=== PATIENT | male | born 1985 | race Two or more races ===

== ENCOUNTER 2025-11-02 14:34 | Outpatient (OUT) | payer MEDICARE, SELFPAY ==
--- OUTSIDE RECORDS SUMMARY | 2025-10-30 11:22 | XMS_ITS | Encounter Summary ---
Author Organization [facility] Address [address] [place] [address] Care Team Providers Care Cage Operator Name Role Phone Marcie Donaldson MD Primary Care Provider Reason for Visit * ReasonCommentsOtalgia Encounter Details DateTypeDepartmentCare Team (Latest Contact Info)Urewbmizrpt82/29/2025 11:22 AM EST - 10/30/2025 1:14 PM [facility] Emergency Department [address] [place] [phone] Mike Noble, [address] [place] [address] Discharge Disposition: Home Social History Tobacco UseTypesPacks/DayYears UsedDateSmoking Tobacco: NeverSmokeless Tobacco: NeverAlcohol UseStandard Drinks/WeekCommentsNo0 (1 standard drink = 0.6 oz pure alcohol)Sex and Gender InformationValueDate RecordedSex Assigned at BirthNot on fileLegal SwmShwj0005/16/2015 12:02 PM EDTGender IdentityNot on fileSexual OrientationNot on filedocumented as of this encounter Last Filed Vital Signs Vital SignReadingTime TakenCommentsBlood Fwrmzobz644/8711 11:25 AM EST Rstfv05723/29/2025 11:25 AM RPHNtjfwnegths29.7 ??C (98 ??F)10/30/2025 11:25 AM ESTRespiratory Vobc001112/30/2024 1:11 PM ESTOxygen Mtafbphbgp75%10/30/2025 11:25 AM ESTInhaled Oxygen Concentration--Jdmfgk72.7 kg (136 lb)10/30/2025 11:25 AM MLIRpaaio355.2 cm (5' 7 )10/30/2025 11:25 AM ESTBody Mass Index21. 11:25 AM ESTdocumented in this encounter Discharge Instructions * Discharge Instructions* Namrata Bowden CNP - 10/30/2025 12:16 PM EST Please make a follow-up appointment with your primary care provider. Please take all medications asprescribed. Do not hesitate to return to the emergency department for any new or worsening symptoms. * Attachments The following attachments cannot be sent through Care Everywhere. * Otitis Media (Yi) * Ears: Keeping Dry Instruction (Yi) * Otitis Externa (Yi) documented in this encounter Medications at Time of Discharge MedicationSigDispense QuantityRefillsLast FilledStart DateEnd Date amoxicillin-clavulanate (AUGMENTIN) 875-125 mg per tablet Take 1 (one) tablet by mouth 2 (two) times a day for 7 days . 14 tablet aspirin 81 MG EC tablet Take 81 mg by mouth daily. atorvastatin (LIPITOR) 40 MG tablet Take 40 mg by mouth every night at bedtime. carBAMazepine (TEGRETOL) 200 mg tablet Take 200 mg by mouth 2 (two) times a day. carvedilol (COREG) 3.125 MG tablet Take 3.125 mg by mouth 2 (two) times a day. ciprofloxacin-dexAMETHasone (CIPRODEX) otic suspension Administer 4 (four) drops into the left ear 2 (two) times a day for 7 days . 7.5 mL HYDROcodone-acetaminophen (NORCO) 5-325 mg per tablet Indications:Dental infectionTake 1 (one) tablet by mouth every 6 (six) hours as needed for pain 2 days supply . 5 tablet 10/07/2025 lisinopril (PRINIVIL,ZESTRIL) 5 MG tablet Take 5 mg by mouth daily. permethrin (LICE TREATMENT, PERMETHRIN,) 1 % liquid . She will after shampooing her hair, apply liquid to hair and scalp. Leave on for 10 minutes. Rinse. May repeat in 1 week if signs of lice remain. 118 mL 01/10/2018documented as of this encounter ED Notes * Namrata Bowden, DORITA - 10/30/2025 1:14 PM EST [facility] ED MARL[facility] Note: NAME: Adam Jewell 40 y.o. CSN: [id number] PCP: Marcie Donaldson MD History: Chief Complaint: Otalgia HPI: The history was obtained from the patient. Adam is a 40 y.o. male who presents with a chief complaint of Otalgia. Patient has a history of CAD, HTN, HLD, CVA. Presents to the emergency department today with complaints of left ear pain. He states that he has had ongoing pain to the left ear and was previously placed on ofloxacin drops. He states that when he went to see his provider they were unable to see inside his ear but gave the antibiotic drops as precaution. He states that the area seems to be worsening. He states he feels like the ear is closingup. 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 He denies any hearing difficulties. Denies any fever, nasal congestion, sore throat, dizziness, vomiting, diarrhea, urinary symptoms. He denies any drainage from the area. Denies any foreign body. PMHx: Past Medical History: Diagnosis Date Behavior problem, adult Coronary artery disease Hyperlipidemia Hypertension Myocardial infarction (HCC) Stroke (HCC) SVT (supraventricular tachycardia) PMSx: Past Surgical History: Procedure Laterality Date CARDIAC CATHETERIZATION CARDIAC CATHETERIZATION N/A 11/30/2016 Procedure: Left Heart Cath Possible PTCA/Stent; Surgeon: Sam Butler MD; Location: [facility]; Service: plastic surgery on L eft ear FAM. Hx: History reviewed. No pertinent family history. SOC. Hx: Social History [1] MEDs: Previous Medications Medication Sig aspirin 81 MG EC tablet Take 81 mg by mouth daily. atorvastatin (LIPITOR) 40 MG tablet Take 40 mg by mouth every night at bedtime. carBAMazepine (TEGRETOL) 200 mg tablet Take 200 mg by mouth 2 (two) times a day. carvedilol (COREG) 3.125 MG tablet Take 3.125 mg by mouth 2 (two) times a day. HYDROcodone-acetaminophen (NORCO) 5-325 mg per tablet Take 1 (one) tablet by mouth every 6 (six) hours as needed for pain 2 days supply . lisinopril (PRINIVIL,ZESTRIL) 5 MG tablet Take 5 mg by mouth daily. metoclopramide (REGLAN) 5 MG tablet Take 1 (one) tablet (5 mg total) by mouth 2 (two) times a day as needed . pantoprazole (PROTONIX) 20 MG tablet Take 1 (one) tablet (20 mg total) by mouth daily . permethrin (LICE TREATMENT, PERMETHRIN,) 1 % liquid . She will after shampooing her hair, apply liquid to hair and scalp. Leave on for 10 minutes. Rinse. May repeat in 1 week if signs of lice remain. ALL: Allergies[2] ROS: Positives and pertinent negatives as per HPI. All other systems were reviewed and are negative. Physical Exam: Patient Vitals for the past 24 hrs: BP Temp Temp src Pulse Resp SpO2 Height Weight 10/30/25 1311 -- -- -- -- 18 -- -- -- 10/30/25 1125 130/87 98 ??F (36.7 ??C) Oral (!) 106 16 99 % 5' 7 61.7 kg (136 lb) Physical Exam Vitals and nursing note reviewed. Constitutional: General: He is not in acute distress. Appearance: Normal appearance. He is well-developed. He is not ill-appearing or toxic-appearing. HENT: Head: Normocephalic and atraumatic. Right Ear: Tympanic membrane, ear canal and external ear normal. Left Ear: Swelling and tenderness present. A middle ear effusion is present. There is no impacted cerumen. Tympanic membrane is erythematous. Tympanic membrane is not perforated. Ears: Comments: Swelling to the canal, difficulty visualizing the TM but what was visualized was intact. No drainage noted. Nose: Nose normal. Eyes: General: No scleral icterus. Conjunctiva/sclera: Conjunctivae normal. Cardiovascular: Rate and Rhythm: Normal rate and regular rhythm. Heart sounds: Normal heart sounds. No murmur heard. Musculoskeletal: Cervical back: Neck supple. Right lower leg: No swelling. No edema. Left lower leg: No swelling. No edema. Pulmonary: Effort: Pulmonary effort is normal. No respiratory distress. Breath sounds: Normal breath sounds and air entry. Skin: General: Skin is warm and dry. Findings: No rash. Neurological: General: No focal deficit present. Mental Status: He is alert and oriented to person, place, and time. Psychiatric: Behavior: Behavior normal. Behavior is cooperative. Laboratory & Radiological Imaging (if done): Labs Reviewed - No data to display No orders to display MDM: Differential : Otitis media, otitis externa, cellulitis Medical Decision Making Problems Addressed: Acute otitis externa of left ear, unspecified type: acute illness or injury Left otitis media, unspecified otitis media type: acute illness or injury Patient was placed on Ciprodex as well as Augmentin for concern for left ear pain. Findings consistent with otitis externa/otitis media. He does have an appointment with ENT in the next week. We discussed return precautions. All questions answered patient is discharged in stable condition. Clinical Impression: 1. Acute otitis externa of left ear, unspecified type 2. Left otitis media, unspecified otitis media type Disposition: Patient is being discharge home. New Prescriptions ciprofloxacin-dexAMETHasone (CIPRODEX) otic suspension Administer 4 (four) drops into the left ear 2 (two) times a day for 7 days . amoxicillin-clavulanate (AUGMENTIN) 875-125 mg per tablet Take 1 (one) tablet by mouth 2 (two) times a day for 7 days . Namrata Bowden CNP ED Advanced Practice Provider [facility] Emergency Department (Please note that portions of this note have been completed with a voice recognition software. Efforts were made to correct any errors, but occasionally words are mis-transcribed.) [1] Social History Socioeconomic History Marital status: Single Tobacco Use Smoking status: Never Smokeless tobacco: Never Substance and Sexual Activity Alcohol use: No Drug use: Yes Types: Marijuana [2] Allergies Allergen Reactions Toradol [Ketorolac] Shortness Of Breath Codeine Nitroglycerin Swelling Namrata Bowden CNP 10/30/25 1402 * Citlaly Ronquillo RN - 10/30/2025 1:13 PM EST PT DISCHARGED AT THIS TIME. COPY OF DISCHARGE PAPERWORK PROVIDED AND REVIEWED WITH PT. ALL MEDICATIONS, FOLLOW UP, AND DISCHARGE INSTRUCTIONS REVIEWED WITH PT. PT VERBALIZED UNDERSTANDING. PT A&OX4. BREATHS EVEN AND UNLABORED. * Connie Grullon RN - 10/30/2025 11:27 AM EST Bed: 16 Expected date: Expected time: Means of arrival: Comments: Next * Sonya Nunn RN - 10/30/2025 11:23 AM EST Pt to ED via EMS with c/o ear pain for the last week. Pt reports that he saw his primary care provider earlier this week and was prescribed ofloaxcin. Pt reports pain has gotten worse and cannot getthe drops in my ears anymore. Pt states he has an appointment with ENT provider on 11/02 documented in this encounter Miscellaneous Notes * ED Attestation Note - Mike Noble DO - 10/30/2025 1:14 PM EST ED Attestation: I did not see this patient. However, I was personally available for consult in the ED for this patient, if the Advanced Practice Provider (MARLON) needed any assistance. The MARLON evaluated the patient independently for a complaint of Otalgia, and completed their own examination, documentation, and discharge. documented in this encounter Plan of Treatment Not on file documented as of this encounter Visit Diagnoses Diagnosis Acute otitis externa of left ear, unspecified type- Primary Left otitis media, unspecified otitis media type documented in this encounter Administered Medications Medication OrderMAR ActionAction DateDoseRateSite amoxicillin-clavulanate (AUGMENTIN) 875-125 mg per tablet 1 tablet 1 tablet, Oral, Once, On 10/30/25 at 1220, For 1 dose, Indication: Acute Otitis Media Given10/30/2025 1:11 PM EST1 tablet HYDROcodone-acetaminophen (NORCO) 5-325 mg per tablet 1 tablet 1 tablet, Oral, Once, On 10/30/25 at 1220, For 1 dose Given10/30/2025 1:11 PM EST1 tabletdocumented in this encounter Active and Recently Administered Medications Times are shown in EST.Medication Order//[id number]/ amoxicillin-clavulanate (AUGMENTIN) 875-125 mg per tablet 1 tablet (COMPLETED) 1 tablet, Oral, Once, On 10/30/25 at 1220, For 1 dose, Indication: Acute Otitis Media * 1311 (Given - Provider: Citlaly Ronquillo RN) HYDROcodone-acetaminophen (NORCO) 5-325 mg per tablet 1 tablet (COMPLETED) 1 tablet, Oral, Once, On 10/30/25 at 1220, For 1 dose * 1311 (Given - Provider: Citlaly Ronquillo RN) documented in this encounter Care Teams Team MemberRelationshipSpecialtyStart DateEnd Date Marcie Donaldson MD [address] [place] [id number] PCP - GeneralFamily Medicine12/11/24documented as of this encounter
--- OUTSIDE RECORDS SUMMARY | 2025-11-02 13:40 | XMS_ITS | Encounter Summary ---
Author Organization [facility] Address [address] [place] [address] Care Team Providers Care Warehouse Manager Name Role Phone Bacilio Ballesteros Primary Care Provider [phone] Reason for Visit * ReasonCommentsEar ProblemChronic LT ME infection/congenital ear lobe absence Encounter Details DateTypeDepartmentCare Team (Latest Contact Info)Madwfidests00/02/2025 1:40 PM ESTOffice Visit [facility] [address] [facility] [address] [place] [phone] Patience Damon MD [address] [facility] [address] [place] [address] 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); Impacted cerumen of left ear; Otalgia, left Social History Tobacco UseTypesPacks/DayYears UsedDateSmoking Tobacco: Every DayCigarettes Tobacco Cessation:Ready to Q uit: Not Asked; Counseling Given: Not Answered Comments:vape Alcohol UseStandard Drinks/WeekCommentsYes0 (1 standard drink = 0.6 oz pure alcohol)Sex and Gender InformationValueDate RecordedSex Assigned at BirthNot on fileLegal FfnUgjf1701/08/2024 11:47 AM ESTGender IdentityNot on fileSexual OrientationNot on filedocumented as of this encounter Last Filed Vital Signs Vital SignReadingTime TakenCommentsBlood Zijmgzzi92/7111/02/2025 1:38 PM EST Xxqpc579311/02/2025 1:38 PM ESTTemperature--Respiratory Rate--Oxygen Saturation-- Inhaled Oxygen Concentration--Ssxvgr65 kg (141 lb)11/02/2025 1:38 PM ESTHeight 170.2 cm (5' 7 )11/02/2025 1:38 PM ESTBody Mass Index22.0811/02/2025 1:38 PM EST documented in this encounter Progress Notes * Patience Damon MD - 11/02/2025 1:40 PM EST Subjective Patient ID: Adam Jewell is a 40 y.o. 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 Has been unable to close his mouth and swallow a few days. Has a congenital atresia. Tx with floxin, ciprodex and augmentin. H/O reconstructive surgery at [place] as a young child. Review of Systems All other systems reviewed and are negative. 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 Neck pain 11/27/2023 Periodontitis 04/14/2024 Generalized anxiety disorder with panic attacks 04/14/2024 Right sided weakness 11/27/2023 Schizophrenia (HCC) 11/27/2023 Breakthrough seizure (HCC) 11/27/2023 Sinus tachycardia by electrocardiogram 11/27/2023 Swallowed foreign body 11/27/2023 Tooth fractures 04/14/2024 Trauma 11/27/2023 High risk social situation 04/14/2024 GERD (gastroesophageal reflux disease) 04/14/2024 Fall 11/27/2023 Establishing care with new doctor, encounter for 04/14/2024 Dyslipidemia 11/27/2023 Depression 11/27/2023 Dental abscess 04/14/2024 Current smoker 04/14/2024 Facial paralysis on left side 04/14/2024 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 Closed head injury 11/27/2023 Chronic left middle ear infection 04/14/2024 Chest pain 11/29/2016 Cerumen impaction 10/29/2025 Family history of carcinoma in situ of anal canal 10/29/2025 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) 10/29/2025 Low TSH level 10/29/2025 LUQ pain 10/29/2025 Skin infection 10/29/2025 SOB (shortness of breath) 10/29/2025 Tooth pain 10/29/2025 Resolved Ambulatory Problems Diagnosis Date Noted No Resolved Ambulatory Problems Past Medical History: Diagnosis Date Ear problems Surgical History[2] Allergies[3] Medications Ordered Prior to Encounter[4] Objective Last Recorded Vitals Vitals: 11/02/25 1338 BP: 96/71 Pulse: 84 ENT Physical Exam Constitutional Appearance: patient appears well-developed and well-nourished, Head and Face Appearance: head appears normal and face appears atraumatic; Ear Ear Canals: right ear canal normal; Tympanic Membranes: right tympanic membrane normal; Ear comments: LT - Pt jumped in extreme pain at the lightest touch of his auricle, EAC and left cheek. No otorrhea, swelling or erythema evident. Dense cerumen impaction in medial EAC. Unable to debride due to pt's inability to be still when touched. Nose External Nose: nares patent bilaterally; external nose normal; Internal Nose: nasal mucosa normal; Oral Cavity/Oropharynx Lips: normal; Teeth: normal; Gums: gingiva normal; Tongue: normal; Oral mucosa: normal; Hard palate: normal; Neck Neck: neck normal; neck palpation normal; Thyroid: thyroid normal; Respiratory Inspection: breathing unlabored; normal breathing rate; Auscultation: breath sounds are clear; Cardiovascular Inspection: extremities are warm and well perfused; no peripheral edema present; Auscultation: regular rate and rhythm; Assessment/Plan Diagnoses and all orders for this visit: Congenital atresia of external auditory canal Impacted cerumen of left ear Otalgia, left Pt expresses extreme tenderness in the absence of any sign of inflammation. I will check labs to assess for infection and chronic inflammation. I feel it is best at this point, given the abnormal anatomy of his ear for the ear to be managed by an associate veterinarian. As his reconstructive surgery was performed at , I will have pt see Dr Mao. [1] Family History Family history unknown: Yes [2] Past Surgical History: Procedure Laterality Date CT ANGIO HEAD 04/23/2023 CT ANGIO HEAD 04/23/2023 CT ANGIOGRAM NECK 04/23/2023 CT ANGIOGRAM NECK 04/23/2023 OTHER SURGICAL HISTORY at LT ear reconstruction [3] Allergies Allergen Reactions Codeine Shortness of breath Other Reaction(s): Unknown Ketorolac Tromethamine Other Reaction(s): Swelling Nitroglycerin Swelling and Unknown Other Reaction(s): Shortness of breath [4] Current Outpatient Medications on File Prior to Visit Medication Sig Dispense Refill amitriptyline (Elavil) 50 MG tablet Take 50 mg by mouth at bedtime amoxicillin-clavulanate (Augmentin) 875-125 MG tablet Take 1 tablet by mouth in the morning and 1 tablet in the evening. ciprofloxacin-dexAMETHasone (CiproDEX) otic suspension Administer 4 drops into affected ear(s) in the morning and 4 drops in the evening. hydrOXYzine HCl (Atarax) 25 MG tablet Every 6 hours as needed ibuprofen 800 MG tablet Take 800 mg by mouth every 6 (six) hours if needed [DISCONTINUED] amoxicillin (Amoxil) 500 MG capsule Take by mouth in the morning and before bedtime. acetaminophen (Tylenol Extra Strength) 500 MG tablet Take 1,000 mg by mouth (Patient not taking: Reported on 11/02/2025) benzocaine (Hurricaine) 20 % gel Apply topically (Patient not taking: Reported on 11/02/2025) jfbucxtaqq-finkgtlxhgzxb-nkhzwmxl 50-325-40 MG tablet Take by mouth (Patient not taking: Reported on 11/02/2025) Debrox 6.5 % otic solution Administer 5 drops into each ear in the morning and 5 drops before bedtime. (Patient not taking: Reported on 11/02/2025) Lidocaine 3.5 % patch Apply 0.1 g topically (Patient not taking: Reported on 11/02/2025) pantoprazole (ProtoNix) 20 MG EC tablet Take 20 mg by mouth in the morning. (Patient not taking: Reported on 11/02/2025) sucralfate (Carafate) 1 GM/10ML suspension Take 1 g by mouth (Patient not taking: Reported on 11/02/2025) traMADol (Ultram) 50 MG tablet Take 50 mg by mouth (Patient not taking: Reported on 11/02/2025) No current facility-administered medications on file prior to visit. documented in this encounter Plan of Treatment NameTypePriorityAssociated DiagnosesOrder ScheduleCBC and differentialLabRoutine Congenital atresia of external auditory canal Expected: 11/02/2025 (Approximate), Expires: 11/02/2026Sedimentation rate, automatedLabRoutine Congenital atresia of external auditory canal Expected: 11/02/2025 (Approximate), Expires: 6C-reactive proteinLab Routine Congenital atresia of external auditory canal Expected: 11/02/2025 (Approximate), Expires: 11/02/2026documented as of this encounter Visit Diagnoses Diagnosis Congenital atresia of external auditory canal- Primary Other congenital anomaly of external ear causing impairment of hearing Impacted cerumen of left ear Impacted cerumen Otalgia, left documented in this encounter Care Teams Team MemberRelationshipSpecialtyStart DateEnd Date Bacilio Ballesteros PA [address] [place] [id number] PCP - GeneralFamily Medicine03/27/24documented as of this encounter
--- OUTSIDE RECORDS SUMMARY | 2025-11-02 14:44 | XMS_ITS | Clinical Summary ---
Author Organization [facility] Address [address] [place] [address] Care Team Providers Care Egyptologist Name Role Phone Bacilio Ballesteros Primary Care Provider [phone] Allergies Active AllergyReactionsCriticalityNoted DateCommentsCodeineShortness of breath High11/29/2016 Other Reaction(s): Unknown Ketorolac Eiyqehvppsst25/14/2024 Other Reaction(s): Swelling NitroglycerinSwelling,Cgldyuz6405/29/2016 Other Reaction(s): Shortness of breath Medications MedicationSigDispense QuantityRefillsLast FilledStart DateEnd DateStatus Debrox 6.5 % otic solution Administer 5 drops into each ear in the morning and 5 drops before bedtime. 01/13/2024ctive ibuprofen 800 MG tablet Take 800 mg by mouth every 6 (six) hours if qipncn0104/09/2024ctive Lidocaine 3.5 % patch Apply 0.1 g ozikhufze51/25/2025Active acetaminophen (Tylenol Extra Strength) 500 MG tablet Take 1,000 mg by mouth04/09/2024ctive benzocaine (Hurricaine) 20 % gel Apply rrzxubepc92/13/2025Active uclswfhpnb-zpdpmdcgnjjgw-bpprnwbr 50-325-40 MG tablet Take by mouth5Active hydrOXYzine HCl (Atarax) 25 MG tablet Every 6 hours as hvmtjb555Active pantoprazole (ProtoNix) 20 MG EC tablet Take 20 mg by mouth in the morning.5Active sucralfate (Carafate) 1 GM/10ML suspension Take 1 g by mouth5Active traMADol (Ultram) 50 MG tablet Take 50 mg by mouth5Active amoxicillin-clavulanate (Augmentin) 875-125 MG tablet Take 1 tablet by mouth in the morning and 1 tablet in the evening.10/30/2025 11/06/2025tive ciprofloxacin-dexAMETHasone (CiproDEX) otic suspension Administer 4 drops into affected ear(s) in the morning and 4 drops in the evening.5Active amitriptyline (Elavil) 50 MG tablet Take 50 mg by mouth at yiwowxt3810/26/2025tive amoxicillin (Amoxil) 500 MG capsule Take by mouth in the morning and before bedtime.Discontinued (Therapy completed) Active Problems ProblemNoted DateDiagnosed DateCerumen apbqpfxvf67/28/2025Family history of carcinoma in situ of anal canal10/29/2025Incomplete lesion of L4 level of lumbar spinal cord10/29/2025Low TSH level10/29/2025LUQ pain10/29/2025Skin infection 10/29/2025SOB (shortness of breath)10/29/2025Tooth pain10/29/2025H/O: CVA (cerebrovascular accident)04/14/2024Hx of myocardial imfnreqpdm86/14/2024Impulse control disorder in adult04/14/2024Mental ygerboxmyw26/14/2024Mild episode of recurrent major depressive /14/6524Motmolfdzrwbp12/14/2024Generalized anxiety disorder with panic encibtc6404/14/2024Tooth crighjrgy91/14/2024High risk social wvrwoxtfa48/14/2024GERD (gastroesophageal reflux disease)04/14/2024 Establishing care with new doctor, encounter for04/14/2024ental abscess 04/14/2024urrent qvmnkf8704/14/2024 Overview (04/14/2024): Added secondary to documentation in Social History. Facial paralysis on left side04/14/2024hronic left middle ear infection 04/14/2024HTN (hypertension)11/27/2023Laceration of scalp11/27/2023Neck pain 11/27/2023Right sided lwxjxokw14/27/8484Lhqddxfnjrgos19/27/2023reakthrough tfyzava0511/27/2023Sinus tachycardia by jkugktgsbiqnuckdm02/27/2023Swallowed foreign body11/27/20235898Pmojny68/27/6752Uepf14/27/6552Ohqyxxzrywrk15/27/2023 Hmyfwdgvza21/27/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11/27/2023losed head injury 11/27/2023hest pain11/29/2016 Encounters DateTypeDepartmentCare PvvmIegfvgytgxm63/02/2025 1:40 PM ESTOffice Visit [facility] [address] [facility] [address] [place] [address] Patience Damon MD 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); Impacted cerumen of left ear; Otalgia, left11/02/2025amboo flowsheet [facility] [address] [facility] [address] [place] [address] Patience Damon MD 11/02/2025Travelfrom Last 3 Months Immunizations ImmunizationAdministration DatesNext DueHep B, adult01/26/2018Influenza Whole 09/01/2016MMR08/22/1996Tdap06/15/2023 Family History RelationNameStatusCommentsFatherDeceasedMotherAlive Social History Tobacco UseTypesPacks/DayYears UsedDateSmoking Tobacco: Every DayCigarettes Tobacco Cessation:Ready to Q uit: Not Asked; Counseling Given: Not Answered Comments:vape Alcohol UseStandard Drinks/WeekCommentsYes0 (1 standard drink = 0.6 oz pure alcohol)Sex and Gender InformationValueDate RecordedSex Assigned at BirthNot on fileLegal SpwRbkw0301/08/2024 11:47 AM ESTGender IdentityNot on fileSexual OrientationNot on file Last Filed Vital Signs Vital SignReadingTime TakenCommentsBlood Xpqmsfly05/7111/02/2025 1:38 PM EST Xwawn169011/02/2025 1:38 PM ESTTemperature--Respiratory Rate--Oxygen Saturation-- Inhaled Oxygen Concentration--Dcpkuv79 kg (141 lb)11/02/2025 1:38 PM ESTHeight 170.2 cm (5' 7 )11/02/2025 1:38 PM ESTBody Mass Index22.0811/02/2025 1:38 PM EST Plan of Treatment Not on file Insurance Care Teams Team MemberRelationshipSpecialtyStart DateEnd Date Bacilio Ballesteros PA [address] [place] [address] PCP - GeneralFamily Medicine03/27/24
--- OUTSIDE RECORDS SUMMARY | 2025-11-02 14:44 | XMS_ITS | Encounter Summary ---
Author Organization [facility] Address [address] [place] [address] Care Team Providers Care Toy Assembly Supervisor Name Role Phone Bacilio Ballesteros Primary Care Provider [phone] Encounter Details DateTypeDepartmentCare Team (Latest Contact Info)Morqxieayla23/02/2025Travel Social History Tobacco UseTypesPacks/DayYears UsedDateSmoking Tobacco: Every DayCigarettes Comments:vape Alcohol UseStandard Drinks/WeekCommentsYes0 (1 standard drink = 0.6 oz pure alcohol)Sex and Gender InformationValueDate RecordedSex Assigned at BirthNot on fileLegal RiqXyta2901/08/2024 11:47 AM ESTGender IdentityNot on fileSexual OrientationNot on filedocumented as of this encounter Plan of Treatment Not on file documented as of this encounter Visit Diagnoses Not on filedocumented in this encounter Care Teams Team MemberRelationshipSpecialtyStart DateEnd Date Bacilio Ballesteros PA [address] [place] [address] PCP - GeneralFamily Medicine03/27/24documented as of this encounter
--- OUTSIDE RECORDS SUMMARY | 2025-11-02 14:44 | XMS_ITS | Clinical Summary ---
Author Organization [facility] Address [address] [place] [address] Care Team Providers Care Substance Abuse Clinician Name Role Phone Marcie Donaldson MD Primary Care Provider Allergies Active AllergyReactionsCriticalityNoted PgkdZppozkwyUzbajig94/29/2016 BkcposvwnezzxQpadmicj75/28/2016KetorolacShortness Of XwqiihLqvo85/10/2025 Medications MedicationSigDispense QuantityRefillsLast FilledStart DateEnd DateStatus carBAMazepine (TEGRETOL) 200 mg tablet Take 200 mg by mouth 2 (two) times a day.Active aspirin 81 MG EC tablet Take 81 mg by mouth daily.Active atorvastatin (LIPITOR) 40 MG tablet Take 40 mg by mouth every night at bedtime.Active carvedilol (COREG) 3.125 MG tablet Take 3.125 mg by mouth 2 (two) times a day.Active lisinopril (PRINIVIL,ZESTRIL) 5 MG tablet Take 5 mg by mouth daily.Active permethrin (LICE TREATMENT, PERMETHRIN,) 1 % liquid . She will after shampooing her hair, apply liquid to hair and scalp. Leave on for 10 minutes. Rinse. May repeat in 1 week if signs of lice remain. 118 mL 01/10/2018Active metoclopramide (REGLAN) 5 MG tablet Take 1 (one) tablet (5 mg total) by mouth 2 (two) times a day as needed . 60 tablet 5Active pantoprazole (PROTONIX) 20 MG tablet Take 1 (one) tablet (20 mg total) by mouth daily . 30 tablet 5Active HYDROcodone-acetaminophen (NORCO) 5-325 mg per tablet Indications:Dental infectionTake 1 (one) tablet by mouth every 6 (six) hours as needed for pain 2 days supply . 5 tablet 5Active ciprofloxacin-dexAMETHasone (CIPRODEX) otic suspension Administer 4 (four) drops into the left ear 2 (two) times a day for 7 days . 7.5 mL 5Active amoxicillin-clavulanate (AUGMENTIN) 875-125 mg per tablet Take 1 (one) tablet by mouth 2 (two) times a day for 7 days . 14 tablet 5Active ibuprofen (ADVIL,MOTRIN) 800 MG tablet Take 1 (one) tablet (800 mg total) by mouth every 8 (eight) hours as needed . 20 tablet /Expired amoxicillin (AMOXIL) 875 MG tablet Take 1 (one) tablet (875 mg total) by mouth 2 (two) times a day for 10 days . 20 tablet Expired Active Problems ProblemNoted DateDiagnosed DateChest pain11/29/2016 Encounters DateTypeDepartmentCare AfqcOfgqielpkvy97/29/2025 11:22 AM EST - 10/30/2025 1:14 PM [facility] [address] [place] [address] Mike Noble, DO Discharge Disposition: Home10/30/20253251Sossse17/06/2025 8:58 PM EST - 10/07/2025 11:48 PM [facility] [address] [place] [address] Milind Clifton, DO Discharge Disposition: Home10/07/20258647Qyxgno10/18/2025 7:38 PM EDT - 09/18/2025 9:24 PM [facility] [address] [place] [address] Tricia Crooks MD Discharge Disposition: Home09/18/2025Travelfrom Last 3 Months Social History Tobacco UseTypesPacks/DayYears UsedDateSmoking Tobacco: NeverSmokeless Tobacco: NeverAlcohol UseStandard Drinks/WeekCommentsNo0 (1 standard drink = 0.6 oz pure alcohol)Sex and Gender InformationValueDate RecordedSex Assigned at BirthNot on fileLegal PghEvkx8005/16/2015 12:02 PM EDTGender IdentityNot on fileSexual OrientationNot on file Last Filed Vital Signs Vital SignReadingTime TakenCommentsBlood Ophoietv807/8711 11:25 AM EST Xqwqt26956/29/2025 11:25 AM JIYJckghynabzg83.7 ??C (98 ??F)10/30/2025 11:25 AM ESTRespiratory Tdhx833812/30/2024 1:11 PM ESTOxygen Cijdekjstf06%10/30/2025 11:25 AM ESTInhaled Oxygen Concentration--Dxarrr21.7 kg (136 lb)10/30/2025 11:25 AM QNOQxwkxe853.2 cm (5' 7 )10/30/2025 11:25 AM ESTBody Mass Index21.311 11:25 AM EST Plan of Treatment Health MaintenanceDue DateLast DoneCommentsMedicare Wellness Visit1987 Depression Screening/Follow-Up (PHQ-2/9)1996Varicella Vaccines (1 of 2 - 13+ 2-dose series)1997HIV Srilelcex12/11/1999Hepatitis C Screening 2002HPV Vaccines (1 - 3-dose SCDM series)2011Hepatitis B Vaccines (2 of 3 - 19+ 3-dose series)COVID-19 Vaccine ( - season)2025Influenza Vaccine (#1)/12/2015 Tetanus/Diphtheria/Pertussis (2 - Td or Tdap)Zoster Vaccines (1 of 2)4RSV Vaccines (1 - 1-dose 75+ series)2059MMR Vaccines Uzoogukzh92/21/1996HIB VaccinesAged OutNo longer eligible based on patient's age to complete this topicHepatitis A VaccinesAged OutNo longer eligible based on patient's age to complete this topicIPV VaccinesAged OutNo longer eligible based on patient's age to complete this topicMeningococcal ACWY VaccineAged OutNo longer eligible based on patient's age to complete this topicMeningococcal B VaccineAged OutNo longer eligible based on patient's age to complete this topic Pneumococcal VaccineAged OutNo longer eligible based on patient's age to complete this topicRotavirus VaccinesAged OutNo longer eligible based on patient's age to complete this topic Insurance Advance Directives For more information, please contact: [phone] * Full Code (Latest Code Status on File) Date ActivatedDate AmoevosefpcEznaspjs33/30/2016 10:37 AM11/30/2016 7:05 PM * Full Code Date ActivatedDate VhtbdbhzacjTyddvdww71/30/2016 9:11 AM11/30/2016 10:37 AM * Full Code Date ActivatedDate PoiuhvltkibQiidarex11/29/2016 6:36 PM11/30/2016 9:11 AM Care Teams Team MemberRelationshipSpecialtyStart DateEnd Date Marcie Donaldson MD [address] [place] [address] [facility]12/11/24
--- OUTSIDE RECORDS SUMMARY | 2025-11-02 14:44 | XMS_ITS | Encounter Summary ---
Author Organization [facility] Address [address] [place] [address] Care Team Providers Care Round Boner Name Role Phone Marcie Donaldson MD Primary Care Provider Encounter Details DateTypeDepartmentCare Team (Latest Contact Info)Ckfozwipifx53/29/2025Travel Social History Tobacco UseTypesPacks/DayYears UsedDateSmoking Tobacco: NeverSmokeless Tobacco: NeverAlcohol UseStandard Drinks/WeekCommentsNo0 (1 standard drink = 0.6 oz pure alcohol)Sex and Gender InformationValueDate RecordedSex Assigned at BirthNot on fileLegal RtrChdf5205/16/2015 12:02 PM EDTGender IdentityNot on fileSexual OrientationNot on filedocumented as of this encounter Plan of Treatment Not on file documented as of this encounter Visit Diagnoses Not on filedocumented in this encounter Care Teams Team MemberRelationshipSpecialtyStart DateEnd Date Marcie Donaldson MD [address] [place] [address] PCP - GeneralFamily Medicine12/11/24documented as of this encounter
--- OUTSIDE RECORDS SUMMARY | 2025-11-02 14:44 | XMS_ITS | Encounter Summary ---
Author Organization [facility] Address [address] [facility] [place] [address] Care Team Providers Care Television Installer Name Role Phone Bacilio Ballesteros Primary Care Provider [phone] Encounter Details DateTypeDepartmentCare Team (Latest Contact Info)Fcvjeidnwhp65/02/2025Bamboo flowsheet [facility] [address] [place] [phone] Patience Damon MD [address] [place] [address] Social History Tobacco UseTypesPacks/DayYears UsedDateSmoking Tobacco: Every DayCigarettes Comments:vape Alcohol UseStandard Drinks/WeekCommentsYes0 (1 standard drink = 0.6 oz pure alcohol)Sex and Gender InformationValueDate RecordedSex Assigned at BirthNot on fileLegal YfcFiuv8401/08/2024 11:47 AM ESTGender IdentityNot on fileSexual OrientationNot on filedocumented as of this encounter Plan of Treatment Not on file documented as of this encounter Visit Diagnoses Not on filedocumented in this encounter Care Teams Team MemberRelationshipSpecialtyStart DateEnd Date Bacilio Ballesteros PA [address] [place] [address] [place] [address] PCP - GeneralFamily Medicine03/27/24documented as of this encounter
--- OUTSIDE RECORDS SUMMARY | 2025-11-02 14:44 | XMS_ITS | Clinical Summary ---
Author Organization [facility] Address [address] [place] [address] Phone Care Team Providers Care Welt Pocket Machine Operator Name Role Phone David Miner DO Primary Care Provider David Miner DO Unavailable Allergies Active AllergyReactionsCriticalityNoted UuhxDlkqrdiaBlfhtpxJpdozkx90/27/2023 ApnmoxdshfihkPicajlm84/27/2023 Medications No known medications Active Problems ProblemNoted DateDiagnosed DateSwallowed foreign body11/27/2023Sinus tachycardia by pballgoyldktkzkax49/27/9943Judnalrnutacx95/27/2023Right sided weakness 11/27/20230611Vradiu71/27/2023TSD (post-traumatic stress disorder)11/27/2023Neck pain11/27/2023Laceration of scalp11/27/2023HTN (hypertension)11/27/2023Fall 11/27/20230607Dzlmugauuqsq96/27/7287Eewtyvkfnl37/27/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 11/27/2023losed head zfocdd6111/27/2023Seizure, iiydfegkhf03/27/2023ongenital gamwdyngcjyvii12/27/2023erebellar pcgseolfngs80/27/2023reakthrough seizure 11/27/2023 Encounters DateTypeDepartmentCare OzypNttxazgjxco56/04/2025Patient Risk Score [facility] [address] [place] [address] 09/04/2025Patient Risk Score [facility] [address] [place] [phone] 08/05/2025Patient Risk Score [facility] [facility] [address] [place] [phone] from Last 3 Months Immunizations ImmunizationAdministration DatesNext DueHepatitis B vaccine, adult *Check Product/Dose*01/26/2018Influenza Whole09/01/2016MMR vaccine, subcutaneous (MMR II)08/22/1996 Family History Medical HistoryRelationNameCommentsAnxiety disorderMotherDepressionMotherStroke MotherRelationNameStatusCommentsMother Social History Tobacco UseTypesPacks/DayYears UsedDateSmoking Tobacco: Every DayCigarettes Smokeless Tobacco: FormerAlcohol UseStandard Drinks/WeekCommentsNot Currently0 (1 standard drink = 0.6 oz pure alcohol)Sex and Gender InformationValueDate RecordedSex Assigned at BirthNot on fileLegal NvpZrsw77/26/2022 8:09 AM EST Gender IdentityNot on fileSexual OrientationNot on file Last Filed Vital Signs Vital SignReadingTime TakenCommentsBlood Wqknnpgm903/7402 9:44 AM EST Ontit302201/07/2024 9:44 AM HMTVdjtgstdlpk82.4 ??C (97.5 ??F)01/07/2024 9:44 AM ESTRespiratory Nqpt738301/07/2024 9:44 AM ESTOxygen Bpjhisnujd27%01/07/2024 9:44 AM ESTInhaled Oxygen Concentration--Pwqycm61.6 kg (149 lb)01/07/2024 9:44 AM EST Qvbmvh354.2 cm (5' 7 )01/07/2024 9:44 AM ESTBody Mass Index23.34001/07/2024 9:44 AM EST Plan of Treatment Health MaintenanceDue DateLast DoneCommentsHIV Vjfffqlyy1984Hepatitis C Yonzkxzlc93/11/2002Pneumococcal Vaccine: Pediatrics and At-Risk Adult Patients (1 of 2 - PCV)2003HPV Vaccines (1 - 3-dose standard series)2011 Hepatitis B Vaccines (2 of 3 - 19+ 3-dose series)Influenza Vaccine (#1)COVID-19 Vaccine (1 - 2024- season)2025 Medicare Annual Wellness Visit (AWV)Lipid Panel11/21/2027 11/21/2022, 11/21/2022, 2DTaP/Tdap/Td Vaccines (2 - Td or Tdap) /Zoster Vaccines (1 of 2)2034MMR VaccinesCompleted 08/22/1996Welcome to Medicare ZicroCakupqdgmudb98/14/2024HIB VaccinesAged OutNo longer eligible based on patient's age to complete this topicHepatitis A VaccinesAged OutNo longer eligible based on patient's age to complete this topic IPV VaccinesAged OutNo longer eligible based on patient's age to complete this topicMeningococcal VaccineAged OutNo longer eligible based on patient's age to complete this topicRotavirus VaccinesAged OutNo longer eligible based on patient's age to complete this topic Procedures Procedure NamePriorityDate/TimeAssociated DiagnosisCommentsLIPID PANELRoutine 11/21/2022 5:50 AM EST from Last 3 Months or Most Recently Relevant to Health Maintenance Results * (ABNORMAL) Lipid Panel (11/21/2022 5:50 AM EST)ComponentValueRef RangeTest MethodAnalysis TimePerformed AtPathologist CsweukcrxAdpphcakxdl631 - 199 mg/dL [facility]: . ?AGE ?DESIRABLE ?? BORDERLINE HIGH ?? HIGH 0-19 Y 0 - 169 170 - 199 >/= 200 20-24 Y 0 - 189 190 - 224 >/= 225 >24 Y 0 - 199 200 - 239 >/= 240 All ranges are based on fasting samples. Specific therapeutic targets will vary based on patient-specific cardiac risk. . Pediatric guidelines reference:Pediatrics 2011, 128(S5). Adult guidelines reference: NCEP ATPIII Guidelines, ??ISAAC 2001, 258:2486-97 . Venipuncture immediately after or during the administration of Metamizole may lead to falsely low results. Testing should be performed immediately prior to Metamizole dosing. HDL34.6(A)mg/dLH[facility] LABComment: . ?AGE ?VERY LOW ?? LOW ? NORMAL ?HIGH ?? 0-19 Y < 35 < 40 40-45 ---- 20-24 Y ---- < 40 >45 ---- >24 Y ---- < 40 40-60 >60 . Cholesterol/HDL Ratio2.5[facility]Comment: REF VALUES DESIRABLE < 3.4 HIGH RISK > 5.0 HUT879 - 99 mg/dLH[facility] LABComment: . ? NEAR ?BORD ?AGE ?DESIRABLE ??OPTIMAL ?HIGH ? HIGH ? VERY HIGH 0-19 Y 0 - 109 --- 110-129 >/= 130 ---- 20-24 Y 0 - 119 --- 120-159 >/= 160 ---- >24 Y 0 - 99 100-129 130-159 160-189 >/=190 . DGUG359 - 40 mg/dL[facility] JIOJwxllpyqlargf095 - 149 mg/dLH[facility] LABComment: . ?AGE ?DESIRABLE ?? BORDERLINE HIGH ?? HIGH ? VERY HIGH 0 D-90 D ?19 - 174 ? ---- ? ---- ?---- 91 D- 9 Y 0 - 74 75 - 99 >/= 100 ---- 10-19 Y 0 - 89 90 - 129 >/= 130 ---- 20-24 Y 0 - 114 115 - 149 >/= 150 ---- >24 Y 0 - 149 150 - 199 200- 499 >/= 500 . Venipuncture immediately after or during the administration of Metamizole may lead to falsely low results. Testing should be performed immediately prior to Metamizole dosing. Specimen (Source)Anatomical Location / LateralityCollection Method / Volume Collection TimeReceived Time11/21/2022 5:50 AM EST11/21/2022 6:09 AM EST Narrative Authorizing ProviderResult TypeResult StatusAdetokunalea Antonio MDLAB BLOOD ORDERABLESFinal ResultPerforming OrganizationAddressCity/State/ZIP CodePhone Number [facility] [address] [place] [address] from Last 3 Months or Most Recently Relevant to Health Maintenance Insurance Care Teams Team MemberRelationshipSpecialtyStart DateEnd Date David Miner DO [address] [place], [place] [phone] PCP - General01/12/22 David Miner DO [address] [place], [place] [phone] PCP - An[employer] Medicare Advantage PCP03/02/24
[2025-11-02 15:00] LABS: Hematocrit 41.4 % (42.0-54.0); Hemoglobin 14.4 g/dL (14.0-18.0); Immature Granulocytes Abs Auto 0.01 10^3/uL (0.00-0.03); Immature Granulocytes Pct Auto 0.2 % (0.0-0.5); Lymphocytes Absolute Auto 1.8 10^3/uL (1.2-3.8); Mean Corpuscular HGB Conc 34.8 g/dL (29.9-35.2); Mean Corpuscular Hemoglobin 29.9 pg (25.9-34.0); Mean Corpuscular Volume 85.9 fL (80.0-94.0); Platelet Count 225 10^3/uL (150-450); Red Blood Count 4.82 10^6/uL (4.70-6.10); White Blood Count 5.0 10^3/uL (4.0-11.0)
== END 2025-11-02 14:35 | disposition home or self-care (01) ==
LOC: LAB 14:42
PROVIDERS: Visit Provider Otolaryngology
DX: Q16.1 Congenital absence, atresia and stricture of auditory canal (external) (principal)
CPT/HCPCS: 36415; 85025; 85652; 86140